=== PATIENT | male | born 1975 | race Caucasian/White ===

== ENCOUNTER 2024-05-18 09:21 | Emergency (ER) | payer OTHER, SELFPAY ==
[2024-05-18 09:22] VITALS: BP 168/101; PULSE 73; RESP 15; TEMP 36.1; O2SAT 98; BMI 39.9
--- NOTE | 2024-05-18 09:29 | EX.ED.UPPERE ---
HPI History of Present Illness HPI Narrative: Left hand laceration with a utility knife. Chief Complaint: Laceration Informant: patient Occured/Mechanism Mechanism/Context: Yes injury Onset/Context/Timing Onset: Today and Hours Context: Sudden Onset Timing: Continuous Quality of Pain: Sharp Current Severity: Mild Maximum Severity: Mild Associated Symptoms Associated Symptoms: Negative for Parasthesia, Weakness or Loss of Funtion Narrative Narrative: 48-year-old male history of hypertension. [id number]. He was carrying something using a utility knife and excellently cut the thenar eminence of his left hand. No other injuries. This occurred about an hour ago. He is unsure of his last tetanus and believes he needs to have it updated. Tetanus Immunization: Unknown Prior similar symptoms: No Recent Illness/Hospitalization: No PFSH PFSH Allergy/AdvReac Type Severity Reaction Status Date / Time No Known Allergies Allergy Verified 05/18/24 09:22 Social History Smoking Status: Never smoker ROS ROS ED ROS Narrative Denies recent illness. Review of Systems ROS Unobtainable: Denies due to encephalopathy Constitutional Constitutional ED: Denies chills or fever(s) Eyes Eyes: Denies blurry vision ENT ENT ED: Denies ear pain Cardiovascular Cardiovascular: Denies chest pain Respiratory/Chest Respiratory/Chest: Denies cough Gastrointestinal Gastrointestinal: Denies abdominal pain Genitourinary Genitourinary ED: Denies dysuria Musculoskeletal Musculoskeletal: Denies back pain Integumentary Denies abscess Neurologic Neurologic: Denies headache(s) Psychiatric Psychiatric: Denies anxiety Endocrine Endocrinology: Denies cold intolerance Hematologic/Lymphatic Hematologic/Lymphatic: Denies easy bleeding Allergic/Immunologic Allergic/Immunologic ED: Denies mouth swelling EXAM Physical Exam Narrative Exam Narrative: For 8-year-old male no acute distress vital signs stable afebrile. H EENT exam unremarkable. Lungs clear. Heart regular rhythm rate about 70 no murmur. Abdomen soft nontender. Moving all 4 extremities. Left hand is wrapped up. Will be evaluated. Const Vital Signs: 05/18/24 09:22 Temperature 96.9 F L Temperature Source Temporal Pulse Rate 73 Respiratory Rate 15 Blood Pressure 168/101 H Blood Pressure Mean 123 Pulse Ox 98 Oxygen Delivery Method Room Air Positive well nourished and well developed; Negative for cachectic, contractures or unkempt General Appearance ED: well developed and NAD; Negative for unkempt, cachectic, contractures, cyanotic or diaphoretic Nutritional Appearance: Negative for cachectic HEENT Reports moist mucous membranes normocephalic and atraumatic; Negative for trauma or tenderness Eyes PERRL and EOMs intact bilaterally General Eye ED: Negative for other Neck full ROM and supple General: Negative for tenderness Lymph Lymphatic: Negative for other Chest Wall inspection of chest normal and palpation of chest normal Chest: Negative for other Resp normal respiratory effort and clear to auscultation bilaterally Effort and Inspection: Negative for pain with movement Auscultation: Negative for rales, rhonchi, wheezes or diminished lung sounds Cardio regular rate, regular rhythm, S1 normal heart sound, S2 normal heart sound and no murmurs Rate: Negative for bradycardia or tachycardic Rhythm: Negative for abnormal rhythm GI non-tender, non-distended and no masses Inspection: Negative for abdominal distention Auscultation: normoactive bowel sounds Palpation: soft; Negative for tender or rebound tenderness present Back/Spine no CVA tenderness General Back: Negative for CVA tenderness Cervical Spine: Negative for cervical spine tenderness Thoracic Spine / Upper Back: Negative for thoracic spinal tenderness Extremity normal to inspection and full ROM Extremity Narrative: Except left hand, palmar eminence of the left thumb there is a linear laceration above the skin and subcu tissue. Neuro oriented x3, CN's II-XII intact bilaterally, moves all extremities and no focal motor deficits Sensorium / Orientation: alert, oriented to person, oriented to place and oriented to time Motor Exam: strength 5/5 throughout Psych mental status grossly normal Appearance: Negative for unkempt Attitude: No agitated Mood & Affect: Negative for depressed, anxious or tearful Skin Skin Narrative: Left hand laceration over the thenar eminence. General Skin Exam: Negative for petechiae Lesions: no lesions Rashes: no rashes Trauma: laceration linear; Negative for no lacerations or abrasions MDM MDM MDM Narrative Medical decision making narrative: 48-year-old male laceration left hand. Tetanus to be updated. This needs suture repaired. Procedures Lacerations Left hand laceration repair:: Depth: Sub Q Shape: Linear Prep: Romaine-Clens Laceration repair: Irrigated, Lidocaine and Wound explored Suture Information: Ethilon, Simple and 4-0 Comment: Left hand laceration lateral aspect of the thenar eminence. 5 cm wound. Involve the skin and subcu tissue. Oozing of blood. No pulsatile bleeding. Left thumb is neurovascular intact with range of motion and touch sensation. Cap refill. Locally anesthetized with lidocaine. Cleaned thoroughly with Shur-Clens then washed with saline, explored and irrigated. Closed using six 4-0 Ethilon sutures. Proper hemostasis wound closure is obtained. Patient was instructed on wound care and suture removal. Discharge Plan Triage Chief Complaint: Laceration ED Provider: Marco Antonio Meyers Dx/Rx/DC Orders Clinical Impression: Laceration of hand, left, History of hypertension Instructions: ED Laceration, Hand: All Closures Primary Care Provider: Polly Moore Referrals: Ted Ferrer MD [Non-Staff] - 10 Day for suture removal Activity Restrictions/Additional Instructions: Clean daily with soap and water or peroxide and water. Watch for any signs of infection such as pus, swelling, redness, red streaks or fever if seen return. Stitches out in 10-14 days. Tylenol and Motrin for pain. Ice and elevate. Tylenol and Motrin for any pain. Print Language: Swedish Disposition Disposition: Home, Self Care
[2024-05-18] MEDS: Diphth,Pertuss(Acell),Tet Vac 0.5 ML Vial IM (09:43)
[2024-05-18] MEDS: Lidocaine 1% (20 ml mdv) 20 ML Vial 10 ML INFILT (09:43)
[2024-05-18 10:10] VITALS: BP 168/101; PULSE 81; RESP 18; TEMP 36.6; O2SAT 98
== END 2024-05-18 10:10 | disposition home or self-care (01) ==
PROVIDERS: Emergency Provider Emergency Medicine; PCP Physician Assistant; Visit Provider Emergency Medicine
DX: S61.412A Laceration without foreign body of left hand, initial encounter (principal); I10 Essential (primary) hypertension; Z23 Encounter for immunization; W26.0XXA Contact with knife, initial encounter
CPT/HCPCS: 12002; 90715; 99284